=== PATIENT | male | born 1965 | race Caucasian/White ===

== ENCOUNTER 2020-09-13 17:19 | Observation (INO) | payer OTHER ==
[~2020-09-13] VITALS: Ht 185.4 cm; Wt 105.7 kg
[2020-09-13] MEDS ORDERED: ASA81BEC PO (17:25)
[2020-09-13] MEDS ORDERED: HYDROCHLOROTH12.5 M2 PO (17:25)
[2020-09-13] MEDS ORDERED: LISINOPRIL5 MG PO (17:25)
[2020-09-13] MEDS ORDERED: NORVASC5 MG PO (17:25)
[2020-09-13] MEDS ORDERED: PRAVASTATIN SOD80 MG PO (17:26)
[2020-09-13] MEDS ORDERED: GLUMETZA1000 PO (17:26)
[2020-09-13] MEDS ORDERED: SERTRALINE HCL100 MG PO (17:26)
[2020-09-13] MEDS ORDERED: FENOFIBRATE150 MG PO (17:26)
[2020-09-13 17:45] LABS: ABSOLUTE EOSINOPHILS 0.1 thou/uL (0.0-0.7); ABSOLUTE LYMPHOCYTES 1.2 thou/uL (0.8-5.3); ABSOLUTE MONOCYTES 0.3 thou/uL (0.0-1.2); ABSOLUTE NEUTROPHILS 3.6 thou/uL (1.6-8.1); BASOPHILS 0.8 %; EOSINOPHILS 1.6 %; HEMATOCRIT 39.9 % (42.0-52.0); HEMOGLOBIN 14.3 gm/dL (14.0-18.0); LYMPHOCYTES 22.3 %; MCH 31.7 pg (26.0-34.0); MCHC 35.7 g/dL (28.0-37.0); MCV 88.7 fL (80.0-100.0); MPV 9.4 fl. (7.2-11.1); NUCLEATED RBCS 0 /100WBC; PLATELET COUNT* 143 thou/uL (150-400); POLYS 69.3 %; RDW-CV 13.2 % (10.5-14.5); WBC 5.2 thou/uL (4.0-11.0)
[2020-09-13 17:52] LABS: CALCIUM 9.7 mg/dL (8.5-10.1); POTASSIUM 3.5 mmol/L (3.5-5.1)
[2020-09-13 18:07] LABS: ALBUMIN 4.6 g/dL (3.4-5.0); CK-MB MASS 2.4 ng/mL (<0.5-3.6); MAGNESIUM 1.7 mg/dL (1.8-2.4); TOTAL BILIRUBIN 0.9 mg/dL (<0.1-1.0); TOTAL PROTEIN 7.1 g/dL (6.4-8.2)
[2020-09-13 20:20] VITALS: BP 153/91
[2020-09-14] VITALS: BP 126/82
[2020-09-14 00:57] LABS: HEMATOCRIT 37.7 % (42.0-52.0); HEMOGLOBIN 13.3 gm/dL (14.0-18.0); MCH 31.4 pg (26.0-34.0); MCHC 35.3 g/dL (28.0-37.0); MCV 89.1 fL (80.0-100.0); RBC 4.23 mil/uL (4.50-6.00); WBC 5.1 thou/uL (4.0-11.0)
[2020-09-14 01:13] LABS: CALCIUM 8.9 mg/dL (8.5-10.1); CREATININE 0.9 mg/dL (0.6-1.3); POTASSIUM 3.6 mmol/L (3.5-5.1)
[2020-09-14 04:00] VITALS: BP 121/73
[2020-09-14 08:00] VITALS: BP 128/79
--- NOTE | 2020-09-14 09:46 | EKG ---
[place] [address] ELECTROCARDIOGRAM REPORT Name: DAO SPENCER Room: [address] IN ..#: [id number] Admission: 09/13/20 Attend Phys: Ralph Balderrama Discharge: Date of : 61 Date of Service: 09/13/20 1721 Report #: [id number] THIS REPORT FOR: //name// [facility] ED Test Date: 2020-09-13 Test Time: 17:21:29 Pat Name: DAO SPENCER Department: Room: [facility] Gender: M Tree Faller: JOLYNN : 1965 Requested By: Sebastian Gardiner Order Number: [id number] MD: Roney Cancino Measurements Intervals Kake Rate: 83 P: 28 WI: 170 QRS: 15 QRSD: 139 T: 5 QT: 375 QTc: 441 Interpretive Statements Sinus rhythm Right bundle branch block No previous ECG available for comparison Electronically Signed On 09-14-2020 9:46:47 CDT by Roney Cancino [email or web address] <ELECTRONICALLY SIGNED> By: Roney Cancino MD, [facility] 09/14/20 0946 [id number] Roney Cancino MD, [facility] /EPI
[2020-09-14 12:00] VITALS: BP 152/83
--- NOTE | 2020-09-14 16:28 | CARDNUC ---
[place] [address] CARDIAC NUCLEAR IMAGING REPORT Name: TJDAO Ye Room: [address] MAbimbola#: [id number] Admission: 09/13/20 Attend Phys: Ralph Balderrama Discharge: Date of : 61 Date of Service: 09/14/20 1628 Report #: [id number] THIS REPORT FOR: cc: Alfred Arvizu,Alfred Queen MD [facility] ~ APPROVED REPORT Study performed: 09/14/2020 13:12:18 Exam: Nuclear Stress Test Indication: Chest pain Patient Location: In-Patient Stress Tech: Sharron Cates Stress Nurse: lEsi Pike RN Ht: 6 ft 0 in Wt: 234 lbs BSA: 2.28 m2 BMI: 31.73 Medical History Medical History: CAD s/p CABG, CAD s/p CT, Diabetes, HTN, Hyperlipidemia, RBBB Medications: amlodipine, asa-81, hctz, lisinopril, pravastatin Allergies: No known drug allergies Cardiac Risk Factors: Age, DM, FHX of CAD, HTN, Hyperlipidemia, Tobacco History (Former) Previous Cardiac Procedures: CABG, Myocardial infarction Exercise History: Physically active Stress Test Details Stress Test: Exercise stress testing was performed using a Cruz protocol. HR Resting HR: 71 bpm Max Heart Rate (APMHR): 163 bpm Max HR Achieved: 163 bpm Target HR (85% APMHR): 138 bpm % of APMHR: 100 Recovery HR: 98 bpm BP Resting BP: 134/74 mmHg Max BP: 214/72 [place] [address] CARDIAC NUCLEAR IMAGING REPORT Name: TJDAO Ye Room: [address]#: [id number] Admission: 09/13/20 Attend Phys: Ralph Balderrama Discharge: Date of : 61 Date of Service: 09/14/20 1628 Report #: [id number] Resting ECG: Sinus Rhythm, RBBB Stress ECG: Sinus tachycardia, RBBB ST Change: None Arrhythmia: None Recovery ECG: Sinus Rhythm, RBBB Recovery ST Change: None Recovery Arrhythmia: None Clinical Reason for Termination: Dyspnea Exercise duration: 9 min 46 sec Exercise capacity: 11.39 METs Overall Exercise Capacity for Age: Normal Functional Aerobic Impairment 100% The patient tolerated standard Cruz protocol exercise without significant cardiac complaint. Stress ECG Conclusion The baseline twelve-lead EKG shows sinus rhythm with right bundle branch block. There were no significant ST segment or T wave abnormalities noted. EKGs obtained during and post exercise show sinus rhythm and sinus tachycardia with no significant ST segment or T wave changes when compared to baseline. There were no stress-induced arrhythmias. NM EXAM: Myocardial Perfusion REST/STRESS Imaging Protocol: Rest Tc-99m/Stress Tc-99m 1 day Resting Data Rest SPECT myocardial perfusion imaging was performed in supine position 30 minutes following the intravenous injection of 11.7 mCi of Tc-99m Sestamibi. Time of rest injection: 1130 Date: 09/14/2020 The images were gated to evaluate regional wall motion and calculate left ventricular ejection fraction. Administration Route: IV Exercise Stress At peak stress, the patient was injected intravenously with 31.8mCi of Tc-99m Sestamibi. Time of stress injection: 1330 Date: 09/14/2020 Administration Route: IV Gated Stress SPECT was performed 30 minutes after stress injection. The images were gated to evaluate regional wall motion and calculate left [place] [address] CARDIAC NUCLEAR IMAGING REPORT Name: TJDAO [address] [id number] Admission: 09/13/20 Attend Phys: Ralph Balderrama Discharge: Date of : 61 Date of Service: 09/14/20 1628 Report #: [id number] Prone imaging was performed. Study Quality Study: Good Artifact: Mild Diaphragmatic artifact Study Data At rest, the left ventricular ejection fraction was 66%.. Post stress, the left ventricular ejection was 56%.. TID = 0.89. Perfusion Perfusion images obtained in the supine position show mild photopenia in the basal to mid inferior wall that resolves with post-rest prone imaging suggesting diaphragmatic attenuation artifact. No other significant fixed or reversible defects were identified. Wall Motion Normal left ventricular wall motion. Nuclear Conclusion ECG Findings: negative for ischemia Clinical Findings: negative for ischemia Nuclear Findings: negative for ischemia Exercise Capacity: normal Left Ventricular Function: normal Risk Study: low Perfusion study showed no defect to suggest infarct or ischemia. Left ventricular systolic function appears normal on gated studies. This is a low risk study. <Conclusion> The baseline twelve-lead EKG shows sinus rhythm with right bundle branch block. There were no significant ST segment or T wave abnormalities noted. EKGs obtained during and post exercise show sinus rhythm and sinus tachycardia with no significant ST segment or T wave changes when compared to baseline. There were no stress-induced arrhythmias. <ELECTRONICALLY SIGNED> By: Alfred Diaz MD, FACC 09/14/20 1628 1628 1628 Alfred Diaz MD, FACC /INF
[2020-09-14 16:32] VITALS: BP 152/83
== END 2020-09-14 16:55 | disposition home or self-care (01) ==
LOC: M.ERS 17:19 → M.2W 18:13 → M.TBA-ER 18:13 → M.2W 18:13
PROVIDERS: Family Medicine; ADMIT Internal Medicine; ATTEND Internal Medicine
DX: R07.89 Other chest pain (principal); K21.9 Gastro-esophageal reflux disease without esophagitis; Z20.822 Contact with and (suspected) exposure to COVID-19; I10 Essential (primary) hypertension; E11.9 Type 2 diabetes mellitus without complications; E78.5 Hyperlipidemia, unspecified; I25.10 Atherosclerotic heart disease of native coronary artery without angina pectoris; Z79.82 Long term (current) use of aspirin; Z79.84 Long term (current) use of oral hypoglycemic drugs; Z79.899 Other long term (current) drug therapy; Z86.73 Personal history of transient ischemic attack (TIA), and cerebral infarction without residual deficits; Z95.1 Presence of aortocoronary bypass graft